=== PATIENT | female | born 1960 | race American Indian/Alaskan Native ===

== ENCOUNTER 2020-03-24 10:44 | Outpatient (CLI) | payer OTHER ==
--- NOTE | 2020-03-24 12:56 | XRay Report ---
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 Significant joint space narrowing is seen throughout. No acute fracture Signer Name: Bhupinder Ramirez MD Signed: 03/24/2020 12:52 PM Workstation Name: [id number]
== END 2020-03-24 10:45 | disposition home or self-care (01) ==
LOC: XRAY 10:44
PROVIDERS: ATTEND Internal Medicine
DX: M17.12 Unilateral primary osteoarthritis, left knee (principal); M25.562 Pain in left knee